=== PATIENT | female | born 1980 | race Hispanic/Latino ===

== ENCOUNTER 2019-03-18 06:39 | Day surgery (SDC) | payer MEDICAID ==
[2019-03-17 10:30] VITALS: BP 109/76
[2019-03-17 10:32] LABS: HEMATOCRIT 42.2 % (36-48); MEAN CORPUSCULAR HEMOGLOBIN 32.8 pg (27.0-33.0); MEAN CORPUSCULAR HGB CONC 34.3 g/dL (32.0-36.0); MEAN CORPUSCULAR VOLUME 95.6 fL (79-99); NUCLEATED RED BLOOD CELLS 0.1 % (0.0-0.19); PLATELET COUNT (AUTO) 231 K/uL (130-400); RED BLOOD CELL COUNT(AUTO) 4.42 MIL/uL (4.00-5.50); RED CELL DISTRIBUTION WIDTH 13.1 % (11.0-15.5); WHITE BLOOD COUNT (AUTO) 4.9 K/uL (4.8-10.8)
[2019-03-17 10:41] LABS: CREATININE 0.7 mg/dL (0.5-1.5); POTASSIUM 4.1 mmol/L (3.5-5.1)
[2019-03-17 11:15] LABS: BASOPHILS % (MANUAL) 1 % (0-2); EOSINOPHILS % (MANUAL) 2 % (1-6); LYMPHOCYTES % (MANUAL) 35 % (22-44); MAN.DIFF COMMENT-IMPRESSION MANUAL DIFFERENTIAL; MONOCYTES % (MANUAL) 8 % (2-9); REACTIVE LYMPHOCYTES 23 % (0-0); SEGMENTED NEUTROPHILS % 31 % (40-70)
[2019-03-17 11:16] LABS: PLATELET MORPHOLOGY COMMENT ADEQUATE
[~2019-03-18] VITALS: Ht 165.1 cm; Wt 98.2 kg
[2019-03-18] VITALS (16 sets, daily range): BP systolic 105–141; BP diastolic 59–84
[2019-03-18] MEDS ORDERED: LACTATED RINGERS 1000ML 1,000 ML IV ONE (07:24)
[2019-03-18] MEDS ORDERED: PROPOFOL 10 MG/ML 20ML VIAL IV ONE (07:58)
[2019-03-18] MEDS ORDERED: LIDOCAINE PF 2% 5ML ABBOJECT ONE (07:58)
[2019-03-18] MEDS ORDERED: DEXAMETHASONE SOD PHOSPHATE 10MG/ML 1ML VIAL ONE (07:58)
[2019-03-18] MEDS ORDERED: ONDANSETRON HCL 4 MG/2 ML VIAL ONE ×2 (07:58→10:39)
[2019-03-18] MEDS ORDERED: FENTANYL CITRATE PF 50 MCG/1 ML 2ML VIAL ONE ×2 (07:58)
[2019-03-18] MEDS ORDERED: ROCURONIUM 10MG/1ML SYR 10 MG/ML ML ONE (07:58)
[2019-03-18] MEDS ORDERED: MIDAZOLAM HCL 1 MG/ML 2ML VIAL ONE (08:00)
[2019-03-18] MEDS ORDERED: CEFAZOLIN SODIUM 1 GM VIAL IVP ONE (08:00)
[2019-03-18] MEDS ORDERED: BUPIVACAINE/PF 0.5% 10ML VIAL ONE (08:59)
[2019-03-18] MEDS ORDERED: GLYCOPYRROLATE 1 MG/5 ML SYRINGE ONE (09:20)
[2019-03-18] MEDS ORDERED: NEOSTIGMINE 5MG/5ML SYR IV ONE (09:20)
[2019-03-18] MEDS ORDERED: MEPERIDINE-PF 25 MG/ML SYG ONE (09:57)
--- NOTE | 2019-03-18 10:50 | NUR ---
patient ARRIVED PATIENT BROUGHT TO DAY PATIENT VIA STRETCHER BY MAYTE TIAN. PATIENT AAOX3, RESPIRATIONS UNLABORED, VITAL SIGNS STABLE. PATIENT DENIES ANY PAIN AT THIS TIME. BANDAID TO MID ABDOMEN ABOVE UMBILICUS, AND 1 BANDAID TO RUQ. BANDAIDS DRY AND INTACT. NO DRAINAGE NOTED. BED IN LOWEST POSITION, SIDERAILS UPX2, CALL ARIAS IN REACH.
--- NOTE | 2019-03-18 11:35 | NUR ---
PATIENT DISCHARGED DISCHARGE INSTRUCTIONS EXPLAINED TO PATIENT AND PATIENT'S MOTHER. FOLLOW UP APPOINTMENT WITH DR ANDERSON PROVIDED. SIGNS/SYMPTOMS TO MONITOR AND REPORT WERE EXPLAINED TO PATIENT. PATIENT AND PATIENT'S MOTHER VERBALIZED UNDERSTANDING. PATIENT TAKEN TO PRIVATE VEHICLE VIA WHEELCHAIR.
== END 2019-03-18 11:35 | disposition home or self-care (01) ==
LOC: DAH 06:39
PROVIDERS: ATTEND Surgery
DX: K80.10 Calculus of gallbladder with chronic cholecystitis without obstruction (principal); Z98.890 Other specified postprocedural states; Z82.49 Family history of ischemic heart disease and other diseases of the circulatory system
CPT/HCPCS: 36415; 47562; 80048; 84703; 85025; 88304; A4450; A4649 ×2; A4930; C1769 ×3; J0690; J1100; J2001; J2175; J2250; J2405 ×2; J2704; J2710; J3010 ×2; J3490 ×2; J7030; J7120